=== PATIENT | male | born 1995 | race Caucasian/White ===

== ENCOUNTER 2023-09-27 18:22 | Emergency (ER) | payer OTHER ==
[~2023-09-27] VITALS: Ht 167.6 cm; Wt 72.6 kg
[2023-09-27 18:28] VITALS: BP 96/54; PULSE 57; RESP 16; TEMP 98.3; O2SAT 98
== END 2023-09-27 19:15 ==
LOC: MED 18:22
DX: Z02.89 Encounter for other administrative examinations (principal); V43.52XA Car driver injured in collision with other type car in traffic accident, initial encounter; Y93.89 Activity, other specified; Y92.410 Unspecified street and highway as the place of occurrence of the external cause; Y99.8 Other external cause status
CPT/HCPCS: 99283